=== PATIENT | male | born 1970 | race Caucasian/White ===

== ENCOUNTER 2023-09-13 10:25 | Emergency (ER) | payer OTHER, BC ==
[2023-09-13 10:30] VITALS: BP 160/70
[2023-09-13] MEDS ORDERED: MELOXICAM15 MG PO (11:35)
== END 2023-09-13 12:11 | disposition home or self-care (01) ==
LOC: ED 10:25
DX: M25.512 Pain in left shoulder (principal); M25.552 Pain in left hip; M25.562 Pain in left knee; I10 Essential (primary) hypertension; Z91.040 Latex allergy status; Z88.5 Allergy status to narcotic agent; Z90.49 Acquired absence of other specified parts of digestive tract; Z98.890 Other specified postprocedural states; V43.52XA Car driver injured in collision with other type car in traffic accident, initial encounter; Y93.89 Activity, other specified; Y92.410 Unspecified street and highway as the place of occurrence of the external cause; Y99.8 Other external cause status